=== PATIENT | female | born 1945 | race Caucasian/White ===

== ENCOUNTER 2020-06-15 05:41 | Day surgery (SDC) | payer MEDICARE, OTHER ==
[2020-06-08 12:41] LABS: BASOPHILS # (AUTO) 0.1 X10'3 (0-0.2); BASOPHILS % (AUTO) 1.9 % (0-1); EOSINOPHILS # (AUTO) 0.3 X10'3 (0-0.9); EOSINOPHILS % (AUTO) 5.6 % (0-6); LYMPHOCYTES # (AUTO) 1.8 X10'3 (1.1-4.8); MEAN CORPUSCULAR HEMOGLOBIN 31.3 PG (27.0-31.0); MEAN CORPUSCULAR HGB CONC 32.9 g/dL (33.0-36.5); MEAN CORPUSCULAR VOLUME 95.1 FL (78-98); MEAN PLATELET VOLUME 7.7 FL (7.4-10.4); MONOCYTES # (AUTO) 0.7 X10'3 (0-0.9); MONOCYTES % (AUTO) 12.3 % (2-12); NEUTROPHILS # (AUTO) 2.6 X10'3 (1.8-7.7); NEUTROPHILS % (AUTO) 47.2 % (42-75); PRE OP HEMOGLOBIN 13.5 g/dL (12.0-16.0); PRE OP PLATELET COUNT 327 X10'3 (140-440); RED BLOOD COUNT 4.32 X10'6 (4.20-5.60); RED CELL DISTRIBUTION WIDTH 13.7 % (11.5-14.5)
[2020-06-08 12:45] LABS: ALBUMIN 3.4 G/DL (3.4-5.0); ALBUMIN/GLOBULIN RATIO 1.1 (1.1-1.5); ALKALINE PHOSPHATASE 69 IU/L (46-116); BLOOD UREA NITROGEN 15 MG/DL (7-18); CALCIUM 9.6 MG/DL (8.5-10.1); CHLORIDE 106 MMOL/L (99-107); CREATININE 0.79 MG/DL (0.40-0.90); PRE OP ALT 23 U/L (30-65); PRE OP ANION GAP 8 (8-16); PRE OP AST 17 U/L (10-37); PRE OP BILIRUB, TOTAL 0.3 MG/DL (0.0-1.0); PRE OP GLUCOSE 107 MG/DL (70-104); PRE OP POTASSIUM 4.2 MMOL/L (3.4-5.1); PRE OP SODIUM 143 MMOL/L (135-145); TOTAL CARBON DIOXIDE 29.1 MMOL/L (24-32); TOTAL PROTEIN 6.6 G/DL (6.4-8.2); eGFR 71 ML/MIN
[~2020-06-15] VITALS: Ht 170.2 cm; Wt 99.0 kg
[2020-06-15] VITALS (10 sets, daily range): BP systolic 98–186; BP diastolic 49–79
[~2020-06-15 05:41] MED LIST: CELE-193 PO; CETI10CA19 PO; DOCU-21 PO; DOCUMENT DATE & TIME OF BETA-BLOCKER PO ONE; MAGN400C PO; MULT-969 PO; NEBI2.5T3 PO; POTASSIUM PO; SIMV20TA PO; cefazolin/dext.iso 2gm/100ml 100 ML IV ONE; famotidine 20mg tablet PO ONE; ringers solution, lacted 1,000 ML IV SCH; vancomycin 1,500 MG in NS 300ml IV soln IV ONE
[2020-06-15] MEDS ORDERED: fentaNYL/PF 50MCG/1 ML 2ML syringe ONE ×2 (06:56→09:18)
[2020-06-15] MEDS ORDERED: midazolam 1 mg/ML 2ml injection ONE (06:56)
[2020-06-15] MEDS ORDERED: dexamethasone sod phosphate 10mg/ml inj ONE (06:56)
[2020-06-15] MEDS ORDERED: sevoflurane 250ml liquid IH ONE (06:56)
[2020-06-15] MEDS ORDERED: propofol inj 20 ML IV ONE (06:57)
[2020-06-15] MEDS ORDERED: MIDAZolam 1 MG/ML 5ML VIAL ONE (06:57)
[2020-06-15] MEDS ORDERED: LIDOcaine 2% (20mg/ml) 5ml vial ONE (06:57)
[2020-06-15] MEDS ORDERED: ROPIVAcaine 0.5% (5mg/ml) 30ml vial ONE ×2 (06:58)
[2020-06-15] MEDS ORDERED: ePHEDrine 50MG/ML INJ. ONE (07:33)
[2020-06-15] MEDS ORDERED: ondansetron/PF 4mg/2ml inj ONE (07:44)
[2020-06-15] MEDS ORDERED: hydrALAZINE 20mg/ml inj. IV PRN (08:05)
[2020-06-15] MEDS ORDERED: ROPIVAcaine 0.2%/PF PUMP/bolus 545 ML POPLITEAL SCH (08:05)
[2020-06-15] MEDS ORDERED: enalaprilat dihydrate 2.5mg/2ml vial IV PRN (08:05)
[2020-06-15] MEDS ORDERED: ringers solution, lacted 1,000 ML IV SCH (08:05)
[2020-06-15] MEDS ORDERED: ondansetron/PF 4mg/2ml inj IV PRN (08:05)
[2020-06-15] MEDS ORDERED: ROPIVAcaine 0.2% (10 MG/5 ML) BOLUS INJECTION POPLITEAL PRN (08:05)
[2020-06-15] MEDS ORDERED: morphine 2 MG/ML inj. syringe IV PRN (08:05)
[2020-06-15] MEDS ORDERED: fentaNYL/PF 50MCG/1 ML 2ML syringe IV PRN ×2 (08:05)
[2020-06-15] MEDS ORDERED: morphine 4 MG/ML inj SYRINge IV PRN (08:05)
[2020-06-15] MEDS ORDERED: bacitracin 15gm ointment TP ONE (08:59)
[2020-06-15] MEDS ORDERED: hydrALAZINE 20mg/ml inj. IV ONE (09:00)
--- NOTE | 2020-06-15 10:05 | NUR ---
Received from OR via [facility] IN STABLE CONDITION FOOT OF BED ELEVATED WITH SPLINT TO LEFT LOWER LEG AND FOOT. ICE PLACED UNDER LEFT KNEE, accompanied by Anesthesiologist DR CELAYA and report given by Anesthesiolgi. Addendum: 06/15/20 at 1011 by Chio Gauthier RN WRONG TIME FOR PREVIOUS NOTE IT SHOULD BE 0937 Addendum: 06/15/20 at 1013 by Chio Gauthier RN Amended: Links added.
--- NOTE | 2020-06-15 11:45 | NUR ---
PATIENT DISCHARGED HOME VIA WHEELCHAIR IN STABLE CONDITION AFTER VERBAL AND WRITTEN DISCHARGE INSTRUCTIONS GIVEN TO PATIENT AND INCLUDING ON Q USE. IV DC'D, DRESSING CLEAN DRY AND INTACT. PATIENT LEFT IN PRIVATE VEHICLE WITH FAMILY MEMBER WITHOUT INCIDENT Addendum: 06/15/20 at 1146 by Chio Gauthier RN Amended: Links added.
== END 2020-06-15 10:57 | disposition home or self-care (01) ==
LOC: PAS 05:41 → EDSTATUS 07:30 → PAS 10:57
PROVIDERS: ATTEND Podiatrist Foot & Ankle Surgery
DX: M19.072 Primary osteoarthritis, left ankle and foot (principal); M79.672 Pain in left foot; I10 Essential (primary) hypertension; Z90.710 Acquired absence of both cervix and uterus; Z98.890 Other specified postprocedural states; Z96.662 Presence of left artificial ankle joint
CPT/HCPCS: 20900; 28740; 36415; 73600; 76000; 80053; 82948; 85025; 93005; A6223; C1713; C1776; J0360; J1100; J2001; J2250; J2405; J2704; J2795; J3010; J3370; J7040; J7120; U0003; A4618; A6449; A7000